=== PATIENT | male | born 1955 | race African-American/Black ===

== ENCOUNTER 2017-05-18 09:29 | Emergency (ER) | payer MEDICAID ==
[~2017-05-18] VITALS: Ht 175.3 cm; Wt 74.1 kg
[2017-05-18 11:30] VITALS: BP 132/82
== END 2017-05-18 12:00 | disposition home or self-care (01) ==
LOC: EMS 09:31
DX: M70.21 Olecranon bursitis, right elbow (principal); F17.210 Nicotine dependence, cigarettes, uncomplicated
CPT/HCPCS: 99283; 99406

== ENCOUNTER 2019-01-22 09:32 | Emergency (ER) | payer MEDICAID | END 2019-01-22 09:40 | disposition left against medical advice (07) | LOC: EMS 09:35 | DX: A64 Unspecified sexually transmitted disease (principal); Z53.21 Procedure and treatment not carried out due to patient leaving prior to being seen by health care provider ==

== ENCOUNTER 2019-06-23 19:36 | Emergency (ER) | payer MEDICAID ==
[~2019-06-23] VITALS: Ht 175.3 cm; Wt 66.8 kg
[2019-06-23 19:40] VITALS: BP 134/92
== END 2019-06-23 20:29 | disposition home or self-care (01) ==
LOC: EMS 19:36
DX: F41.9 Anxiety disorder, unspecified (principal); J06.9 Acute upper respiratory infection, unspecified; F17.210 Nicotine dependence, cigarettes, uncomplicated
CPT/HCPCS: 99406

== ENCOUNTER 2019-06-25 07:14 | Emergency (ER) | payer MEDICAID ==
[~2019-06-25] VITALS: Ht 177.8 cm; Wt 63.6 kg
[2019-06-25 07:30] VITALS: BP 123/92
== END 2019-06-25 07:45 | disposition left against medical advice (07) ==
LOC: EMS 07:16
DX: J06.9 Acute upper respiratory infection, unspecified (principal); F17.210 Nicotine dependence, cigarettes, uncomplicated

== ENCOUNTER 2020-01-13 07:04 | Emergency (ER) | payer MEDICAID ==
[~2020-01-13] VITALS: Ht 167.6 cm; Wt 81.8 kg
[2020-01-13] MEDS ORDERED: SODIUM CHLORIDE 0.9% 1,000 ML IV ONE (07:15)
[2020-01-13 07:33] LABS: BASOPHILS % (AUTO) 0.8 % (0.0-2.0); HEMATOCRIT 43.4 % (41-53); HEMOGLOBIN 14.5 g/dL (13.5-17.5); LYMPHOCYTES # (AUTO) 3.3 K/uL (1.0-4.8); LYMPHOCYTES % (AUTO) 42.2 % (22.0-44.0); MEAN CORPUSCULAR HEMOGLOBIN 30.7 pg (26.0-34.0); MEAN CORPUSCULAR HGB CONC 33.5 G/dL (31.0-37.0); MEAN CORPUSCULAR VOLUME 92 fL (80-100); MONOCYTES # (AUTO) 0.7 K/uL (0.1-1.0); MONOCYTES % (AUTO) 9.1 % (2.0-9.0); NEUTROPHILS # (AUTO) 3.5 K/uL (1.8-7.7); NEUTROPHILS % (AUTO) 44.9 % (40.0-70.0); PLATELET COUNT (AUTO) 352 K/uL (150-450); RED BLOOD CELL COUNT(AUTO) 4.74 MIL/uL (4.50-5.90); RED CELL DISTRIBUTION WIDTH 13.6 % (11.5-14.5)
[2020-01-13 07:39] LABS: ANION GAP 7 mmol/L (8-16); CARBON DIOXIDE 26 mmol/L (22-29); CHLORIDE 107 mmol/L (98-107); GLOMERULAR FILTR. RATE CALC > 60 mL/min (>60); GLUCOSE,RANDOM 102 mg/dL (70-110); POTASSIUM 3.7 mmol/L (3.5-5.1); SODIUM SERUM 140 mmol/L (136-145); UREA NITROGEN, BLOOD 12 mg/dL (7-18)
[2020-01-13 07:40] LABS: SALICYLATE 4.2 mg/dL (2.8-20.0)
[2020-01-13 07:44] LABS: ALANINE AMINOTRANSFERASE 34 U/L (12-78); ALBUMIN 3.8 g/dL (3.4-5.0); ALKALINE PHOSPHATASE 103 U/L (46-116); ASPARTATE AMINOTRANSFERASE 24 U/L (15-37); BILIRUBIN,TOTAL 0.4 mg/dL (0.1-1.0)
[2020-01-13 07:48] LABS: ACETAMINOPHEN < 2 mcg/mL (10-30)
[2020-01-13 07:49] LABS: AMMONIA 50 umol/L (11-32); TROPONIN I < 0.02 ng/mL (0.00-0.05)
[2020-01-13] MEDS ORDERED: PERTUSS(ACELL),DIPH,TET VAC/PF 0.5 ML VIAL IM ONE (08:30)
[2020-01-13] MEDS ORDERED: CeFAZolin 1 GM/DEXTROSE 50 ML IV ONE (08:30)
[2020-01-13 10:20] LABS: AMPHET/METH SCREEN,URINE NEGATIVE (NEGATIVE); BARBITURATE SCREEN, URINE NEGATIVE (NEGATIVE); BENZODIAZEPINES SCREEN,URINE NEGATIVE (NEGATIVE); CANNABINOID SCREEN,URINE NEGATIVE (NEGATIVE); COCAINE SCREEN,URINE POSITIVE (NEGATIVE); METHADONE SCREEN, URINE NEGATIVE (NEGATIVE); OPIATE SCREEN,URINE NEGATIVE (NEGATIVE)
[2020-01-13 10:22] LABS: PHENCYCLIDINE SCREEN,URINE NEGATIVE (NEGATIVE)
[2020-01-13 10:59] VITALS: BP 127/73
== END 2020-01-13 11:09 | disposition home or self-care (01) ==
LOC: EMS 07:05
DX: S51.812A Laceration without foreign body of left forearm, initial encounter (principal); G93.40 Encephalopathy, unspecified; F10.129 Alcohol abuse with intoxication, unspecified; F14.10 Cocaine abuse, uncomplicated; F17.210 Nicotine dependence, cigarettes, uncomplicated; W45.8XXA Other foreign body or object entering through skin, initial encounter; Y93.89 Activity, other specified; Y92.89 Other specified places as the place of occurrence of the external cause; Y99.8 Other external cause status; Y90.6 Blood alcohol level of 120-199 mg/100 ml
CPT/HCPCS: 12002; 36415; 70450; 71045; 72125; 72170; 73090; 80053; 80307; 82140; 82962; 84484; 85025; 90471; 90715; 93005; 96361; 96365; 99285; G0480; J0690; G0481

== ENCOUNTER 2020-01-25 08:58 | Emergency (ER) | payer MEDICAID ==
[~2020-01-25] VITALS: Ht 172.7 cm; Wt 70.9 kg
[2020-01-25 09:00] VITALS: BP 120/73
== END 2020-01-25 10:07 | disposition home or self-care (01) ==
LOC: EMS 08:58
DX: S51.812D Laceration without foreign body of left forearm, subsequent encounter (principal); F17.210 Nicotine dependence, cigarettes, uncomplicated; X58.XXXD Exposure to other specified factors, subsequent encounter
CPT/HCPCS: Z7502

== ENCOUNTER 2020-06-16 12:35 | Emergency (ER) | payer MEDICARE, MEDICAID ==
[~2020-06-16] VITALS: Ht 175.3 cm; Wt 75.0 kg
[2020-06-16 12:56] VITALS: BP 112/87
[2020-06-16] MEDS ORDERED: SULFAMETHOX/TRIMETH DS 800-160 MG/TABLET PO ONE (15:30)
== END 2020-06-16 15:31 | disposition home or self-care (01) ==
LOC: EMS 12:35
DX: L02.415 Cutaneous abscess of right lower limb (principal); F17.210 Nicotine dependence, cigarettes, uncomplicated; F12.90 Cannabis use, unspecified, uncomplicated
CPT/HCPCS: 99283

== ENCOUNTER 2020-06-27 08:01 | Emergency (ER) | payer MEDICARE, MEDICAID ==
[~2020-06-27] VITALS: Ht 175.3 cm; Wt 73.6 kg
[2020-06-27 08:16] VITALS: BP 126/79
[2020-06-27] MEDS ORDERED: NEOMYCIN/POLYMYXIN B/HYDROCORT 10 ML OTIC SOLUTION AD ONE (08:30)
[2020-06-27] MEDS ORDERED: IBUPROFEN 600 MG TABLET PO ONE (08:30)
[2020-06-27] MEDS ORDERED: CIPROFLOXACIN HCL 250 MG TABLET PO ONE (08:30)
== END 2020-06-27 09:55 | disposition home or self-care (01) ==
LOC: EMS 08:05
DX: H60.92 Unspecified otitis externa, left ear (principal)
CPT/HCPCS: 65220; 99284; Z7502; Z7610

== ENCOUNTER 2020-12-01 16:26 | Emergency (ER) | payer MEDICARE, MEDICAID ==
[~2020-12-01] VITALS: Ht 175.3 cm; Wt 75.0 kg
[2020-12-01 19:06] LABS: BASOPHILS % (AUTO) 0.6 % (0.0-2.0); EOSINOPHILS % (AUTO) 1.4 % (1.0-6.0); HEMATOCRIT 46.6 % (41-53); HEMOGLOBIN 15.5 g/dL (13.5-17.5); LYMPHOCYTES % (AUTO) 18.7 % (22.0-44.0); MEAN CORPUSCULAR HEMOGLOBIN 30.5 pg (26.0-34.0); MEAN CORPUSCULAR HGB CONC 33.2 G/dL (31.0-37.0); MEAN CORPUSCULAR VOLUME 92 fL (80-100); MONOCYTES # (AUTO) 0.7 K/uL (0.1-1.0); NEUTROPHILS % (AUTO) 73.3 % (40.0-70.0); PLATELET COUNT (AUTO) 320 K/uL (150-450); RED BLOOD CELL COUNT(AUTO) 5.07 MIL/uL (4.50-5.90); RED CELL DISTRIBUTION WIDTH 14.4 % (11.5-14.5)
[2020-12-01 19:15] LABS: ANION GAP 10 mmol/L (8-16); CALCIUM, TOTAL 9.1 mg/dL (8.8-10.5); CARBON DIOXIDE 26 mmol/L (22-29); CHLORIDE 101 mmol/L (98-107); CREATININE 1.21 mg/dL (0.60-1.30); GLOMERULAR FILTR. RATE CALC > 60 mL/min (>60); GLUCOSE,RANDOM 153 mg/dL (70-110); POTASSIUM 3.7 mmol/L (3.5-5.1); SODIUM SERUM 137 mmol/L (136-145); UREA NITROGEN, BLOOD 12 mg/dL (7-18)
[2020-12-01 19:21] LABS: ALANINE AMINOTRANSFERASE 44 U/L (12-78); ALBUMIN 3.8 g/dL (3.4-5.0); ALKALINE PHOSPHATASE 161 U/L (46-116); ASPARTATE AMINOTRANSFERASE 21 U/L (15-37); BILIRUBIN,TOTAL 0.4 mg/dL (0.1-1.0); TOTAL PROTEIN, SERUM 8.4 g/dL (6.4-8.2)
[2020-12-01 19:43] LABS: LACTIC ACID 2.1 mmol/L (0.4-2.0)
[2020-12-01] MEDS ORDERED: CefTRIAXone SODIUM 1 GM/VIAL IM ONE (19:45)
[2020-12-01] MEDS ORDERED: DOXYCYCLINE HYCLATE 100 MG TABLET PO ONE (19:45)
[2020-12-01] MEDS ORDERED: HYDROCODONE/ACETAMINOPHEN 5-325 MG TABLET PO ONE (19:45)
[2020-12-01] MEDS ORDERED: LIDOCAINE/PF 1% 2 ML VIAL IM ONE (19:45)
[2020-12-01 20:00] VITALS: BP 132/71
== END 2020-12-01 20:18 | disposition home or self-care (01) ==
LOC: EMS 16:27
DX: L03.116 Cellulitis of left lower limb (principal); F14.10 Cocaine abuse, uncomplicated; F17.210 Nicotine dependence, cigarettes, uncomplicated; F12.90 Cannabis use, unspecified, uncomplicated
CPT/HCPCS: 36415; 73562; 80053; 83605; 85025; 87040; 96372; 99284; J0696; J3490

== ENCOUNTER 2020-12-12 12:43 | Emergency (ER) | payer MEDICARE, MEDICAID ==
[~2020-12-12] VITALS: Ht 175.3 cm; Wt 68.2 kg
[2020-12-12 12:49] VITALS: BP 125/56
[2020-12-12] MEDS ORDERED: HYDR-4723 PO (12:56)
== END 2020-12-12 14:44 | disposition home or self-care (01) ==
LOC: EMS 12:43
DX: M25.562 Pain in left knee (principal); F17.210 Nicotine dependence, cigarettes, uncomplicated; F14.90 Cocaine use, unspecified, uncomplicated; F12.90 Cannabis use, unspecified, uncomplicated; Z76.0 Encounter for issue of repeat prescription
CPT/HCPCS: 99283; Z7502

== ENCOUNTER 2023-03-11 07:32 | Emergency (ER) | payer OTHER ==
[~2023-03-11] VITALS: Ht 172.7 cm; Wt 65.9 kg
[~2023-03-11 07:32] MED LIST: HYDR-4723 PO
[2023-03-11 07:36] VITALS: TEMP 97.9
[2023-03-11 09:00] VITALS: BP 145/95; PULSE 90; RESP 12
[2023-03-11] MEDS ORDERED: IBUPROFEN 600 MG TABLET PO ONE (09:00)
[2023-03-11] MEDS ORDERED: AMOXICILLIN TRIHYDRATE 250 MG CAPSULE PO ONE (09:00)
[2023-03-11] MEDS ORDERED: IBUP-1492 PO (09:06)
[2023-03-11] MEDS ORDERED: AMOX500C2 PO (09:07)
== END 2023-03-11 09:21 | disposition home or self-care (01) ==
LOC: EMS 07:32
DX: H66.91 Otitis media, unspecified, right ear (principal); M79.632 Pain in left forearm; F17.210 Nicotine dependence, cigarettes, uncomplicated; F14.90 Cocaine use, unspecified, uncomplicated; F12.90 Cannabis use, unspecified, uncomplicated; Z98.890 Other specified postprocedural states
CPT/HCPCS: 93005; 99283